=== PATIENT | male | born 1970 | race Two or more races ===

== ENCOUNTER 2019-06-14 18:16 | Emergency (ER) | payer BC, OTHER ==
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
[2019-06-14 19:01] VITALS: BP 139/98; TEMP 98.1; O2SAT 99
== END 2019-06-14 18:51 | disposition home or self-care (01) ==
LOC: ER 18:16
DX: Z04.1 Encounter for examination and observation following transport accident (principal); V28.0XXA Motorcycle driver injured in noncollision transport accident in nontraffic accident, initial encounter
CPT/HCPCS: 99283